=== PATIENT | male | born 1970 | race Caucasian/White ===

== ENCOUNTER 2018-12-18 08:52 | Day surgery (SDC) | payer OTHER ==
[~2018-12-18] VITALS: Ht 167.6 cm; Wt 104.2 kg
[2018-12-18] MEDS ORDERED: HCTZ 25MG TAB25 MG PO (09:16)
[2018-12-18] MEDS ORDERED: GLUCOPHAGE1000 MG PO (09:16)
[2018-12-18] MEDS ORDERED: LOPRESSOR 225 MG/TAB PO (09:17)
[2018-12-18] MEDS ORDERED: OMEGA-3 1000 MG1 CAP PO (09:17)
[2018-12-18] MEDS ORDERED: LIPITOR 40MG TA40 MG PO (09:17)
[2018-12-18] MEDS ORDERED: ASPIRIN E.C. 8181 MG PO (09:17)
[2018-12-18] MEDS ORDERED: FARXIGA10 PO (09:18)
[2018-12-18 09:19] VITALS: BP 131/78; PULSE 76; TEMP 98.2
--- NOTE | 2018-12-18 11:51 | NUR ---
Patient rounding completed. Patient denies any needs at this time. Call light in reach. Family at the bedside.
[2018-12-18] MEDS ORDERED: NORCO 325 MG-51 TAB PO (14:27)
[2018-12-18 14:30] VITALS: BP 100/50; PULSE 79; TEMP 97.4
--- NOTE | 2018-12-18 14:30 | NUR ---
[place] [facility] [place], accompanied by STICKER HAND Maegan. Bedside report received. Patient is alert and oriented. He denies any pain or nausea. Sitting up in bed. VSS and WNL on room air. Surgical site covered by a clean, dry, intact dressing. Offered and receives water and pudding - tolerates well. Call light in reach. Family at the bedside. Will continue to monitor.
[2018-12-18 14:45] VITALS: BP 115/72; PULSE 75
--- NOTE | 2018-12-18 14:45 | NUR ---
Patient resting comfortably in room. VSS and WNL on room air. Tolerating PO well. Denies any pain, nausea, or need. Will continue to monitor.
[2018-12-18 15:00] VITALS: BP 107/76; PULSE 77
--- NOTE | 2018-12-18 15:00 | NUR ---
Patient denies any pain, nausea, or need.
--- NOTE | 2018-12-18 15:09 | NUR ---
Patient escorted to restroom with standby assist. Gait steady. Patient voids and returns to room.
--- NOTE | 2018-12-18 15:21 | NUR ---
Port de-accessed at this time. Flushed with heparin syringe per protocol. See EMAR for details.
--- NOTE | 2018-12-18 15:30 | NUR ---
Discharge criteria has been met. Discharge instructions discussed, denies any questions, and verbalizes understanding. Patient changes to clothing independently. Escorted to exit to via wheelchair by AIDE Olivia. Discharged to home with ride in private vehicle at 1530.
== END 2018-12-18 15:30 | disposition home or self-care (01) ==
LOC: SDCO 08:52
DX: K40.90 Unilateral inguinal hernia, without obstruction or gangrene, not specified as recurrent (principal); I10 Essential (primary) hypertension; E11.9 Type 2 diabetes mellitus without complications; Z79.84 Long term (current) use of oral hypoglycemic drugs; Z85.72 Personal history of non-Hodgkin lymphomas; E78.5 Hyperlipidemia, unspecified; Z80.8 Family history of malignant neoplasm of other organs or systems; Z79.82 Long term (current) use of aspirin; Z79.899 Other long term (current) drug therapy; Z87.891 Personal history of nicotine dependence; E66.9 Obesity, unspecified; Z68.36 Body mass index [BMI] 36.0-36.9, adult
CPT/HCPCS: J1100; J1644; J1885; J2405; J2704; J3010; J7030

== ENCOUNTER → 2020-05-14 | Outpatient (CLI) | payer OTHER ==
[~2020-05-14] MED LIST: ASPIRIN E.C. 8181 MG PO; FARXIGA10 PO; GLUCOPHAGE1000 MG PO; HCTZ 25MG TAB25 MG PO; LIPITOR 40MG TA40 MG PO; LOPRESSOR 225 MG/TAB PO; NORCO 325 MG-51 TAB PO; OMEGA-3 1000 MG1 CAP PO
== END ==
LOC: COL.RAD 07:45
DX: C85.90 Non-Hodgkin lymphoma, unspecified, unspecified site (principal); K76.0 Fatty (change of) liver, not elsewhere classified
CPT/HCPCS: Q9967